=== PATIENT | male | born 2000 | race Caucasian/White ===

== ENCOUNTER 2024-12-02 14:05 | Emergency (ER) | payer BC, SELFPAY ==
[2024-12-02 14:06] VITALS: BMI 29.6
[2024-12-02 14:23] VITALS: BP 123/83; PULSE 102; RESP 19; TEMP 37.6; O2SAT 97
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
[2024-12-02] MEDS: KETOROLAC INJ 60 MG/2 ML VIAL 15 MG IM (16:07)
[2024-12-02] MEDS: DIPHTH,PERTUSS(ACELL),TET VAC 0.5 ML SYR- ADULT IMi (16:10)
[2024-12-02 18:13] VITALS: BP 142/83; PULSE 63; RESP 18; TEMP 36.7; O2SAT 98
[2024-12-02 20:01] VITALS: BP 130/81; PULSE 74; RESP 19; TEMP 37; O2SAT 97
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
== END 2024-12-02 20:11 | disposition home or self-care (01) ==
PROVIDERS: Emergency Provider Emergency Medicine
DX: S29.012A Strain of muscle and tendon of back wall of thorax, initial encounter (principal); V43.52XA Car driver injured in collision with other type car in traffic accident, initial encounter; M25.561 Pain in right knee; Z23 Encounter for immunization
CPT/HCPCS: 72128; 72131; 72170; 73564; 90471; 90715; 96372; 99283; J1885